=== PATIENT | female | born 1950 | race Caucasian/White ===

== ENCOUNTER 2016-07-21 08:10 | Day surgery (SDC) | payer OTHER ==
[~2016-07-21 08:10] MED LIST: ACET650S4 RECTAL; BISA10SU24 RECTAL; CELE20TA PO; LORA-474 PO; MORP10S2 PO; MULT-6 PO
[2016-07-21 08:43] VITALS: BP 103/61; PULSE 90; RESP 18; TEMP 98; O2SAT 100
--- NOTE | 2016-07-21 09:42 | PD.RAD ---
Post US Procedure Prog Note Pre Procedure Diagnosis: (1) Ascites Post Procedure Diagnosis: (1) Ascites Procedure Date: Jul 21, 2016 Supervising Radiologist: Trevon Lea Anesthesia: Local Plan of Activity Patient to Unit: ROPU Patient Condition: Fair See PACS Report for procedural detail/treatment Drainage Procedure Procedure 1 Imaging Guidance: Ultrasound Side: Right Procedure Type: Paracentesis Procedure: Removal Drainage: Suction Fluid Description: Clear, Yellow Trevon Lea MD Jul 21, 2016 09:42
[2016-07-21 11:30] VITALS: BP 114/86; PULSE 88; RESP 18; O2SAT 100
[2016-07-21 11:45] VITALS: BP 98/58; PULSE 88; RESP 18; O2SAT 100
--- NOTE | 2016-07-21 11:46 | RADRPT ---
EXAM DATE/TIME: 07/21/2016 08:52 [facility] COMPARISON: US GUIDED ABD PARACENTESIS, June 29, 2016, 10:41. INDICATIONS : Ascites. MEDICAL HISTORY : Cirrhosis. Hypothyroidism. Hypertension. COPD. Emphysema. Encephalopathy. SURGICAL HISTORY : Paracentesis. ENCOUNTER: Subsequent ACUITY: 1 week PAIN SCORE: 0/10 LOCATION: Right lower quadrant [place]: [place] [address] [place] of clear, yellow fluid was removed. Fluid was discarded. Paracentesis was therapeutic only. Post procedure scanning reveals no hematoma or other complication. TECHNIQUE: 1. Ultrasound guidance for abdominal paracentesis. 2. Paracentesis. The risks, benefits, and alternatives to ultrasound guided paracentesis were explained to the patient in detail including the risk of bleeding and infection. Written and verbal informed consent was obt ained. With the patient on the ultrasound table, ultrasound imaging was used to select the most appropriate approach for paracentesis. Overlying skin was prepped and draped in the usual sterile fashion and wi th a local anesthetic, a dermatotomy was made with an 11 blade scalpel. A 6 Amharic Yty-H-lwsweifp ca theter was introduced into the peritoneal cavity and fluid was collected. The patient tolerated the procedure well and left the ultrasound suite in stable condition. CONCLUSION: Uncomplicated ultrasound guided paracentesis. Trevon Lea MD on July 21, 2016 at 11:45 Board Certified Radiologist. This report was verified electronically.
[2016-07-21] MEDS ORDERED: ALBUMIN HUMAN 25% 75 GM IV ONE (12:00)
== END 2016-07-21 12:55 | disposition home or self-care (01) ==
LOC: HRIP 08:10 → HRAD 08:10
PROVIDERS: ATTEND Family Medicine
DX: R18.8 Other ascites (principal); I10 Essential (primary) hypertension; J44.9 Chronic obstructive pulmonary disease, unspecified; E03.9 Hypothyroidism, unspecified
CPT/HCPCS: 49083; C1729

== ENCOUNTER 2016-08-11 10:15 | Day surgery (SDC) | payer OTHER ==
[2016-08-11 10:46] VITALS: BP 120/66; PULSE 93; RESP 24; TEMP 97.7; O2SAT 97
[2016-08-11] MEDS ORDERED: ALBUMIN HUMAN 25% 25 GM/100 ML BAGP IV ONE (12:15)
[2016-08-11 13:40] VITALS: BP 95/48; PULSE 92; RESP 18; TEMP 98.3; O2SAT 96
[2016-08-11 14:00] VITALS: BP 101/52; PULSE 86; RESP 20; O2SAT 97
--- NOTE | 2016-08-11 15:47 | RADRPT ---
EXAM DATE/TIME: 08/11/2016 11:19 [facility] COMPARISON: US GUIDED ABD PARACENTESIS, July 21, 2016, 8:52. INDICATIONS : Ascites. MEDICAL HISTORY : Chronic obstructive pulmonary disease. Hypertension. Cirrhosis. Emphysema. SURGICAL HISTORY : Paracentesis. ENCOUNTER: Subsequent ACUITY: 1 month PAIN SCORE: 5/10 LOCATION: Right lower quadrant FLUID: Total volume of 15,000 cc of clear, yellow fluid was removed. Fluid was discarded. Paracentesis was therapeutic only. Post procedure scanning reveals no hematoma or other complication. TECHNIQUE: 1. Ultrasound guidance for abdominal paracentesis. 2. Paracentesis. The risks, benefits, and alternatives to ultrasound guided paracentesis were explained to the patient in detail including the risk of bleeding and infection. Written and verbal informed consent was obt ained. With the patient on the ultrasound table, ultrasound imaging was used to select the most appropriate approach for paracentesis. Overlying skin was prepped and draped in the usual sterile fashion and wi th a local anesthetic, a dermatotomy was made with an 11 blade scalpel. A 6 [place]inean Stx-M-jeghcwew ca theter was introduced into the peritoneal cavity and fluid was collected. The patient tolerated the procedure well and left the ultrasound suite in stable condition. CONCLUSION: Uncomplicated ultrasound guided paracentesis. Patient received albumin per protocol. Randy Sibley MD FACR on August 11, 2016 at 15:46 Board Certified Radiologist. This report was verified electronically.
[2016-08-11 15:52] VITALS: BP 92/45; PULSE 92; RESP 20; O2SAT 96
== END 2016-08-11 16:44 | disposition home or self-care (01) ==
LOC: HRAD 10:15 → HRIP 10:20 → HRAD 16:44
PROVIDERS: ATTEND Family Medicine
DX: R18.8 Other ascites (principal); I10 Essential (primary) hypertension; J44.9 Chronic obstructive pulmonary disease, unspecified; K74.60 Unspecified cirrhosis of liver; J43.9 Emphysema, unspecified
CPT/HCPCS: 49083; C1729; P9047

== ENCOUNTER 2016-09-05 09:36 | Day surgery (SDC) | payer OTHER ==
[2016-09-05 11:03] VITALS: BP 105/48; PULSE 91; RESP 14; TEMP 97; O2SAT 96
[2016-09-05 12:30] VITALS: BP 107/55; PULSE 90; RESP 20; TEMP 98.2; O2SAT 98
[2016-09-05 12:45] VITALS: BP 108/55; PULSE 91; RESP 20; O2SAT 98
[2016-09-05] MEDS ORDERED: ALBUMIN HUMAN 25% 75 GM IV ONE (12:45)
[2016-09-05 13:00] VITALS: BP 102/54; PULSE 92; RESP 18; O2SAT 100
--- NOTE | 2016-09-05 13:30 | RADRPT ---
EXAM DATE/TIME: 09/05/2016 10:18 [facility] COMPARISON: US GUIDED ABD PARACENTESIS, August 11, 2016, 11:19. INDICATIONS : Ascites. MEDICAL HISTORY : Chronic obstructive pulmonary disease. Hypertension. Cirrhosis. Emphysema. SURGICAL HISTORY : Paracentesis. ENCOUNTER: Sequela ACUITY: 1 day PAIN SCORE: 6/10 LOCATION: Left lower quadrant FLUID: Total volume of 17,800 cc of clear, yellow fluid was removed. Fluid was discarded. Paracentesis was therapeutic only. Post procedure scanning reveals no hematoma or other complication. TECHNIQUE: 1. Ultrasound guidance for abdominal paracentesis. 2. Paracentesis. The risks, benefits, and alternatives to ultrasound guided paracentesis were explained to the patient in detail including the risk of bleeding and infection. Written and verbal informed consent was obt ained. With the patient on the ultrasound table, ultrasound imaging was used to select the most appropriate approach for paracentesis. Overlying skin was prepped and draped in the usual sterile fashion and wi th a local anesthetic, a dermatotomy was made with an 11 blade scalpel. A 6 Turkish Lbs-O-yojhlfub ca theter was introduced into the peritoneal cavity and fluid was collected. The patient tolerated the procedure well and left the ultrasound suite in stable condition. CONCLUSION: Uncomplicated ultrasound guided paracentesis. Postprocedure imaging demonstrates complete evacuation of the fluid. Since the patient is having very large volume paracentesis and reports significant sym ptoms prior to the procedure I would consider performing more frequent paracentesis about every 2-3 w eeks. Stefano Garrido MD on September 05, 2016 at 13:27 Board Certified Radiologist. This report was verified electronically.
== END 2016-09-05 13:30 | disposition hospice, home (50) ==
LOC: HRIP 09:36 → HRAD 09:36
PROVIDERS: ATTEND Family Medicine
DX: R18.8 Other ascites (principal); J44.9 Chronic obstructive pulmonary disease, unspecified; I10 Essential (primary) hypertension; K74.60 Unspecified cirrhosis of liver
CPT/HCPCS: 49083; 96365; C1729; P9047

== ENCOUNTER 2016-09-15 08:00 | Day surgery (SDC) | payer OTHER ==
[2016-09-15 08:33] VITALS: BP 115/60; PULSE 87; RESP 24; TEMP 94.7; O2SAT 100
[2016-09-15] MEDS ORDERED: ALBUMIN HUMAN 25% 25 GM/100 ML BAGP IV ONE (10:00)
[2016-09-15 10:30] VITALS: BP 130/65; PULSE 82; RESP 22; TEMP 98.2; O2SAT 100
[2016-09-15 10:45] VITALS: BP 126/65; PULSE 84; RESP 20; O2SAT 100
--- NOTE | 2016-09-15 10:57 | RADRPT ---
EXAM DATE/TIME: 09/15/2016 08:19 [facility] COMPARISON: US GUIDED ABD PARACENTESIS, September 05, 2016, 10:18. INDICATIONS : Ascites. MEDICAL HISTORY : Chronic obstructive pulmonary disease. Hypertension. Emphysema. SURGICAL HISTORY : Paracentesis. ENCOUNTER: Sequela ACUITY: 3 days PAIN SCORE: 2/10 LOCATION: Right lower quadrant FLUID: Total volume of 13,900 cc of clear, yellow fluid was removed. Fluid was discarded. Paracentesis was therapeutic only. Post procedure scanning reveals no hematoma or other complication. TECHNIQUE: 1. Ultrasound guidance for abdominal paracentesis. 2. Paracentesis. The risks, benefits, and alternatives to ultrasound guided paracentesis were explained to the patient in detail including the risk of bleeding and infection. Written and verbal informed consent was obt ained. With the patient on the ultrasound table, ultrasound imaging was used to select the most appropriate approach for paracentesis. Overlying skin was prepped and draped in the usual sterile fashion and wi th a local anesthetic, a dermatotomy was made with an 11 blade scalpel. A 6 Chinese Cxb-M-sxxdnyqy ca theter was introduced into the peritoneal cavity and fluid was collected. The patient tolerated the procedure well and left the ultrasound suite in stable condition. CONCLUSION: Uncomplicated ultrasound guided paracentesis. Patient received albumin per protocol. Randy Sibley MD FACR on September 15, 2016 at 10:55 Board Certified Radiologist. This report was verified electronically.
== END 2016-09-15 11:25 ==
LOC: HRAD 08:00 → HRIP 08:04 → HRAD 11:25
PROVIDERS: ATTEND Family Medicine
DX: R18.8 Other ascites (principal); K74.60 Unspecified cirrhosis of liver; I10 Essential (primary) hypertension; J44.9 Chronic obstructive pulmonary disease, unspecified
CPT/HCPCS: 49083; 96365; C1729; P9047

== ENCOUNTER 2016-09-29 08:05 | Day surgery (SDC) | payer OTHER ==
[2016-09-29] VITALS (7 sets, daily range): BP systolic 89–110; BP diastolic 31–63; PULSE 76–87; RESP 16–18; TEMP 97.2–97.8; O2SAT 97
[2016-09-29] MEDS ORDERED: ALBUMIN HUMAN 25% 12.5GM-W/50GM FOR 62.5GM IV ONE (10:45)
[2016-09-29] MEDS ORDERED: ALBUMIN HUMAN 25% 50GM-W/12.5GM FOR 62.5GM IV ONE (10:45)
--- NOTE | 2016-09-29 12:04 | RADRPT ---
EXAM DATE/TIME: 09/29/2016 08:28 [facility] COMPARISON: US GUIDED ABD PARACENTESIS, September 15, 2016, 8:19. INDICATIONS : Ascites. MEDICAL HISTORY : Cirrhosis. Hypertension. Chronic obstructive pulmonary disease. Emphysema. Hypothroidism. SURGICAL HISTORY : Paracentesis. ENCOUNTER: Sequela ACUITY: 2 weeks PAIN SCORE: 1/10 LOCATION: Right lower quadrant FLUID: Total volume of 11,100 cc of clear, yellow fluid was removed. Fluid was discarded. Paracentesis was therapeutic only. Post procedure scanning reveals no hematoma or other complication. TECHNIQUE: 1. Ultrasound guidance for abdominal paracentesis. 2. Paracentesis. The risks, benefits, and alternatives to ultrasound guided paracentesis were explained to the patient in detail including the risk of bleeding and infection. Written and verbal informed consent was obt ained. With the patient on the ultrasound table, ultrasound imaging was used to select the most appropriate approach for paracentesis. Overlying skin was prepped and draped in the usual sterile fashion and wi th a local anesthetic, a dermatotomy was made with an 11 blade scalpel. A 6 Welsh Oon-S-lydozrzi ca theter was introduced into the peritoneal cavity and fluid was collected. The patient tolerated the procedure well and left the ultrasound suite in stable condition. CONCLUSION: Uncomplicated ultrasound guided paracentesis. Adryan Syed MD on September 29, 2016 at 12:02 Board Certified Radiologist. This report was verified electronically.
== END 2016-09-29 11:45 | disposition home or self-care (01) ==
LOC: HRAD 08:05 → HRIP 08:08 → HRAD 11:45
PROVIDERS: ATTEND Family Medicine
DX: R18.8 Other ascites (principal); I10 Essential (primary) hypertension; J44.9 Chronic obstructive pulmonary disease, unspecified
CPT/HCPCS: 49083; 96365; C1729; P9047

== ENCOUNTER 2016-10-12 08:08 | Day surgery (SDC) | payer OTHER ==
[2016-10-12 08:37] VITALS: BP 97/54; PULSE 86; RESP 16; TEMP 97.6; O2SAT 99
[2016-10-12] MEDS ORDERED: ALBUMIN HUMAN 25% 50 GM IV ONE (10:15)
[2016-10-12 10:18] VITALS: BP 112/63; PULSE 79; RESP 18; TEMP 98.1; O2SAT 98
[2016-10-12 10:40] VITALS: BP 114/64; PULSE 79; RESP 20; O2SAT 100
--- NOTE | 2016-10-12 11:09 | RADRPT ---
EXAM DATE/TIME: 10/12/2016 08:33 [facility] COMPARISON: US GUIDED ABD PARACENTESIS, September 29, 2016, 8:28. INDICATIONS : Ascites. MEDICAL HISTORY : Cirrhosis. Hypertension. Chronic obstructive pulmonary disease. Emphysema. Hypothroidism. SURGICAL HISTORY : Paracentesis. ENCOUNTER: Sequela ACUITY: 2 weeks PAIN SCORE: 0/10 LOCATION: Right lower quadrant FLUID: Total volume of 8,800 cc of clear, yellow fluid was removed. Fluid was discarded. Paracentesis was therapeutic only. Post procedure scanning reveals no hematoma or other complication. TECHNIQUE: 1. Ultrasound guidance for abdominal paracentesis. 2. Paracentesis. The risks, benefits, and alternatives to ultrasound guided paracentesis were explained to the patient in detail including the risk of bleeding and infection. Written and verbal informed consent was obt ained. With the patient on the ultrasound table, ultrasound imaging was used to select the most appropriate approach for paracentesis. Overlying skin was prepped and draped in the usual sterile fashion and wi th a local anesthetic, a dermatotomy was made with an 11 blade scalpel. A 6 Kiswahili Ecg-H-zlnrfprc ca theter was introduced into the peritoneal cavity and fluid was collected. The patient tolerated the procedure well and left the ultrasound suite in stable condition. CONCLUSION: Uncomplicated ultrasound guided paracentesis. Stefano Garrido MD on October 12, 2016 at 11:07 Board Certified Radiologist. This report was verified electronically.
== END 2016-10-12 11:05 | disposition home or self-care (01) ==
LOC: HRAD 08:08 → HRIP 08:09 → HRAD 11:05
PROVIDERS: ATTEND Family Medicine
DX: R18.8 Other ascites (principal)
CPT/HCPCS: 49083; 96365; C1729; P9047

== ENCOUNTER 2016-10-30 07:51 | Day surgery (SDC) | payer OTHER ==
[2016-10-30 08:26] VITALS: BP 105/58; PULSE 84; RESP 16; TEMP 98.1; O2SAT 93
[2016-10-30 10:40] VITALS: BP 113/63; PULSE 77; RESP 20; TEMP 98.2; O2SAT 99
[2016-10-30 10:55] VITALS: BP 100/53; PULSE 79; RESP 20; O2SAT 100
[2016-10-30] MEDS ORDERED: ALBUMIN HUMAN 25% 25 GM/100 ML BAGP IV ONE (11:03)
[2016-10-30 11:10] VITALS: BP 95/49; PULSE 78; RESP 20; O2SAT 100
[2016-10-30 11:25] VITALS: BP 99/54; PULSE 82; RESP 20; O2SAT 99
[2016-10-30] MEDS ORDERED: ALBUMIN HUMAN 25% 50 GM IV ONE (11:45)
[2016-10-30 11:50] VITALS: BP 107/56; PULSE 79; RESP 20; O2SAT 100
--- NOTE | 2016-10-30 15:30 | RADRPT ---
EXAM DATE/TIME: 10/30/2016 08:34 [facility] COMPARISON: US GUIDED ABD PARACENTESIS, October 12, 2016, 8:33. INDICATIONS : Ascites. MEDICAL HISTORY : Cirrhosis. Hypertension. Chronic obstructive pulmonary disease. Emphysema. Hypothroidism. SURGICAL HISTORY : Paracentesis. ENCOUNTER: Sequela ACUITY: 2 weeks PAIN SCORE: 1/10 LOCATION: Right lower quadrant FLUID: Total volume of 8,100 cc of clear, yellow fluid was removed. Fluid was discarded. Paracentesis was therapeutic only. Post procedure scanning reveals no hematoma or other complication. TECHNIQUE: 1. Ultrasound guidance for abdominal paracentesis. 2. Paracentesis. The risks, benefits, and alternatives to ultrasound guided paracentesis were explained to the patient in detail including the risk of bleeding and infection. Written and verbal informed consent was obt ained. With the patient on the ultrasound table, ultrasound imaging was used to select the most appr opriate approach for paracentesis. Overlying skin was prepped and draped in the usual sterile fashio n and with a local anesthetic, a dermatotomy was made with an 11 blade scalpel. A 6 Faroese Saf-T-destini tesis catheter was introduced into the peritoneal cavity and fluid was collected. The patient tolerated the procedure well and left the ultrasound suite in stable condition. CONCLUSION: Uncomplicated ultrasound guided paracentesis. Deni Mcnamara MD on October 30, 2016 at 15:28 Board Certified Radiologist. This report was verified electronically.
== END 2016-10-30 12:05 | disposition home or self-care (01) ==
LOC: HRAD 07:51 → HRIP 07:52 → HRAD 12:05
PROVIDERS: ATTEND Family Medicine
DX: R18.8 Other ascites (principal); I10 Essential (primary) hypertension; J44.9 Chronic obstructive pulmonary disease, unspecified; J43.9 Emphysema, unspecified; K74.60 Unspecified cirrhosis of liver
CPT/HCPCS: 49083; 96365; C1729; P9047

== ENCOUNTER 2016-11-13 07:35 | Day surgery (SDC) | payer OTHER ==
[2016-11-13 08:16] VITALS: BP 108/62; PULSE 85; RESP 14; TEMP 97; O2SAT 98
[2016-11-13] MEDS ORDERED: ALBUMIN HUMAN 25% 25 GM/100 ML BAGP IV ONE (08:45)
--- NOTE | 2016-11-13 09:33 | RADRPT ---
EXAM DATE/TIME: 11/13/2016 07:54 [facility] COMPARISON: US GUIDED ABD PARACENTESIS, October 30, 2016, 8:34. INDICATIONS : Ascites. MEDICAL HISTORY : Cirrhosis. Hypertension. Chronic obstructive pulmonary disease. Emphysema. Hypothyroid. SURGICAL HISTORY : Paracentesis. ENCOUNTER: Sequela ACUITY: 1 week PAIN SCORE: 6/10 LOCATION: Right lower quadrant FLUID: Total volume of 9000 cc of clear, yellow fluid was removed. Fluid was discarded. Paracentesis was therapeutic only. Post procedure scanning reveals no hematoma or other complication. TECHNIQUE: 1. Ultrasound guidance for abdominal paracentesis. 2. Paracentesis. The risks, benefits, and alternatives to ultrasound guided paracentesis were explained to the patient in detail including the risk of bleeding and infection. Written and verbal informed consent was obt ained. With the patient on the ultrasound table, ultrasound imaging was used to select the most appropriate approach for paracentesis. Overlying skin was prepped and draped in the usual sterile fashion and wi th a local anesthetic, a dermatotomy was made with an 11 blade scalpel. A 6 Puerto Rican Fua-C-oguvkqhn ca theter was introduced into the peritoneal cavity and fluid was collected. The patient tolerated the procedure well and left the ultrasound suite in stable condition. CONCLUSION: Uncomplicated ultrasound guided paracentesis. Patient received albumin per protocol. Randy Sibley MD FACR on November 13, 2016 at 9:31 Board Certified Radiologist. This report was verified electronically.
[2016-11-13 09:35] VITALS: BP 90/34; PULSE 86; RESP 16; TEMP 98; O2SAT 96
[2016-11-13] MEDS ORDERED: ALBUMIN HUMAN 25% 12.5 GM/50 ML BAGP IV ONE (10:15)
[2016-11-13 10:33] VITALS: BP 101/52; PULSE 83; RESP 20; O2SAT 97
== END 2016-11-13 11:35 ==
LOC: HRAD 07:35 → HRIP 07:36 → HRAD 11:35
PROVIDERS: ATTEND Family Medicine
DX: R18.8 Other ascites (principal); I10 Essential (primary) hypertension; J44.9 Chronic obstructive pulmonary disease, unspecified; E03.9 Hypothyroidism, unspecified; K74.60 Unspecified cirrhosis of liver; Z88.5 Allergy status to narcotic agent; Z91.041 Radiographic dye allergy status
CPT/HCPCS: 49083; 96365; C1729; P9047

== ENCOUNTER 2016-11-28 07:57 | Day surgery (SDC) | payer OTHER ==
[~2016-11-28] VITALS: Ht 160 cm; Wt 57.2 kg
[2016-11-28] MEDS ORDERED: DOCU50CA5 PO (08:26)
[2016-11-28] MEDS ORDERED: TRAM50TA PO (08:26)
[2016-11-28] MEDS ORDERED: VANCOMYCIN 1000 MG/NS 250 ML - implanted port/tunneled catheter IV SCH ×2 (08:30)
[2016-11-28] MEDS ORDERED: ceFAZolin 2 GM PREMIX 50 ML - implanted port/tunneled catheter insertion IV SCH (08:30)
[2016-11-28 08:38] VITALS: BP 116/64; PULSE 84; RESP 20; TEMP 97.9; O2SAT 95
[2016-11-28] MEDS ORDERED: SODIUM CHLORIDE 0.9% 1000 ML IV SCH (08:45)
[2016-11-28 08:59] LABS: AUTOMATED NEUTROPHIL # 9.3 TH/MM3 (1.8-7.7); BASOPHIL # 0.1 TH/MM3 (0-0.2); BASOPHIL % 1.1 % (0.0-2.0); EOSINOPHIL # 0.2 TH/MM3 (0-0.4); EOSINOPHIL % 1.7 % (0.0-4.0); HEMATOCRIT 23.5 % (35.0-46.0); LYMPH % 4.8 % (9.0-44.0); LYMPHOCYTE # 0.5 TH/MM3 (1.0-4.8); MEAN CELL VOLUME 95.5 FL (80.0-100.0); MEAN CORPUSCULAR HEMOGLOBIN 33.3 PG (27.0-34.0); MEAN CORPUSCULAR HGB CONC 34.9 % (32.0-36.0); MONO % 8.6 % (0.0-8.0); NEUT % 83.8 % (16.0-70.0); PLATELET COUNT 570 TH/MM3 (150-450); RED BLOOD COUNT 2.46 MIL/MM3 (4.00-5.30); RED CELL DISTRIBUTION WIDTH 16.2 % (11.6-17.2); WHITE BLOOD COUNT 11.1 TH/MM3 (4.0-11.0)
[2016-11-28 09:00] LABS: HEMO FLAGS AUTO DIFF
[2016-11-28 09:15] LABS: APTT (PATIENT) 34.2 SEC (24.3-30.1); INTERNATIONAL NORMALIZED RATIO 1.2 RATIO; PROTHROMBIN TIME - PATIENT 12.8 SEC (9.8-11.6)
[2016-11-28 10:05] LABS: ACANTHOCYTES OCC (NORMAL); KERATOCYTES 1+ (NORMAL); OVALOCYTES 1+ (NORMAL)
[2016-11-28 10:06] LABS: PLATELET ESTIMATE SMEAR HIGH (NORMAL); PLATELET MORPHOLOGY NORMAL (NORMAL); SCAN/DIFF AUTO DIFF CONFIRMED
[2016-11-28] MEDS ORDERED: LIDOCAINE 1%/EPINEPHrine 1:100,000 SOLN 30 ML VIAL ONE (13:19)
[2016-11-28] MEDS ORDERED: MIDAZOLAM HCL 5 MG/5 ML VIAL ONE (13:32)
[2016-11-28] MEDS ORDERED: fentaNYL CITRATE 250 MCG/5 ML AMP ONE (13:33)
[2016-11-28 14:58] VITALS: BP 102/55; PULSE 86; RESP 18; TEMP 97.6; O2SAT 92
[2016-11-28 15:13] VITALS: BP 95/53; PULSE 86; RESP 20; O2SAT 94
[2016-11-28 15:43] VITALS: BP 104/52; PULSE 82; RESP 20; O2SAT 97
[2016-11-28 16:13] VITALS: BP 113/60; PULSE 85; RESP 20; O2SAT 98
--- NOTE | 2016-11-28 18:11 | PD.RAD ---
Post Procedure Progress Note Pre Procedure Diagnosis: (1) Ascites Post Procedure Diagnosis: (1) Ascites Procedure Date: November 28, 2016 Supervising Radiologist: Dirk Judge Proceduralist/Assist: Rita Pitts, RT(R), RT Nati(R) Anesthesia: Local, Analgesia, Conscious Sedation Plan of Activity Patient to Unit: ROPU Patient Condition: Good See PACS Report for procedural detail/treatment Drainage Procedure Procedure 1 Imaging Guidance: Fluoroscopy, Ultrasound Side: Right Procedure Type: Peritoneal Catheter Tunneled (Aspira) Procedure: Placement Drainage: [place] drainage Fluid Removal (CCs): 8000 Fluid Description: Dirk Townsend MD November 28, 2016 18:11
--- NOTE | 2016-11-29 15:47 | RADRPT ---
EXAM DATE/TIME: 11/28/2016 13:40 [facility] COMPARISON: No previous studies available for comparison. INDICATIONS : Patient with a history of ascites. MEDICAL HISTORY : Anemia Cirrhosis of liver Mild dementia Osteoporosis Psorasis Stroke Hypothyroid HTN Emphysema COPD Depression Anxiety SURGICAL HISTORY : None. ENCOUNTER: Initial ACUITY: 7-11 months PAIN SCORE: 5/10 LOCATION: Abdomen FLUORO TIME: 1.4 minutes IMAGE SERIES: 1 SEDATION TIME: 60 minutes ACCESS: Right Abdomen SEDATION: 1.) 5 mg midazolam (Versed) IV 2.) 250 mcg fentanyl (Sublimaze) IV Prophylactic antibiotics were administered with appropriate pre-procedure timing. Vancomycin within 2 hours of procedure, Ancef (or alternative) within 1 hour of procedure. DEVICE: 1. single lumen Aspira pleural drainage catheter PROCEDURE : 1. Ultrasound and fluoroscopic guided placement of a tunneled Aspira peritoneal drainage catheter 2. Conscious sedation with continuous EKG and Oximetry monitoring. The risks, benefits and alternatives to the procedure were explained and verbal and written consent w as obtained. The site was prepped in sterile fashion. Full sterile technique was used, including ca p, mask, sterile gloves and gown and a large sterile sheet. Hand hygiene and 2% chlorhexidine and Be tadine was utilized per protocol for cutaneous antisepsis with appropriate dry time for site. The sk in and subcutaneous tissues were infiltrated with local anesthetic solution. With ultrasound guidance, a large pocket in the right abdomen was identified. The overlying skin was excised with an 11 blade scalpel. Subcutaneous tissues were bluntly dissected. Access to the peritone al cavity was obtained with a 21 gauge micropuncture needle using direct ultrasound guidance. A 018 w klever was advanced through the needle and into the peritoneal cavity. 3-4 dilator was placed over the w klever and the 0.035 Glidewire advanced through the outer cannula into the pelvis. The Aspira drain was used to determine the appropriate site of the second dermatotomy. After appropriate local anesthetic, dermatotomy was made and one blade scalpel. The tunnel between the 2 dermatotomies was then anesthet ized with an additional 4 cc of 1% Xylocaine. The metallic condylar was then ran between the dermatot omies and the catheter pulled through the subcutaneous tunnel. Over the 035 wire, the tract was serially dilated to accommodate the peel-away sheath. The inner styl ette was removed. The wire was advanced through the tip of the Aspira catheter and the catheter advan kristin into the peritoneal cavity. Peel-away sheath was removed. The inner stylette was removed and the valve installed into the end of the sheath. The initial dermatotomy was closed with 3-0 deep Vicryl sutures and Dermabond adhesive. Patient did report a allergy to iodinated contrast. Therefore, the tu be was not injected. Conscious sedation was performed with the prescribed dosages and duration as above in the presence of an independent trained radiology nurse to assist in the monitoring of the patient. EKG and oximetry remained stable throughout the procedure. CONCLUSION: Successful placement of a peritoneal Aspira drainage catheter as above. Approximately 8000 cc of ascitic fluid was removed. Dirk Judge MD on November 29, 2016 at 15:11 Board Certified Radiologist. This report was verified electronically.
== END 2016-11-28 17:13 | disposition home or self-care (01) ==
LOC: HROP 07:57 → HRIP 07:58 → HROP 17:13
PROVIDERS: ATTEND Family Medicine
DX: R18.8 Other ascites (principal)
CPT/HCPCS: 49418; 85025; 85610; 85730; 99152; 99153; C1729; J0690; J2250; J3010; J3370; J7030; J7050